=== PATIENT | male | born 1980 | race Caucasian/White ===

== ENCOUNTER 2019-02-18 08:07 | Inpatient (IN) | payer BC ==
[2019-02-18] MEDS ORDERED: NITROGLYCERIN SL TABS 0.4 MG TAB SUBLINGUAL STA (08:23)
[2019-02-18] MEDS ORDERED: ASPIRIN 81 MG PO STA (08:23)
--- NOTE | 2019-02-18 08:27 | ED ---
Chest Pain HPI - General Chief Complaint: Chest Pain Stated Complaint: chest tightness/fever/headache Time Seen by Provider: 02/18/19 08:14 Source: patient, RN notes reviewed Mode of arrival: ambulatory Limitations: no limitations - History of Present Illness Initial Comments: This is a 38-year-old male with a benign past history who states for the past several days she's been having hot flashes chills especially at night having some sweats also started developing chest tightness last evening that increased with very deep breathing he also states it was 7/10 severity currently 3-4/10. It does not radiate. No cough or phlegm production no dysuria hematuria no other symptoms. He is a nonsmoker. No exposure to fumes or dust or dirt inside the ordinary. No heavy lifting or trauma no other modifying factors no family history of any heart disease at early age. MD Complaint: chest pain, other - Related Data Home Medications Medication Instructions Recorded Confirmed No Known Home Medications 02/18/19 02/18/19 Allergies Allergy/AdvReac Type Severity Reaction Status Date / Time No Known Allergies Allergy Verified 02/18/19 08:48 Review of Systems ROS Statement: Those systems with pertinent positive or pertinent negative responses have been documented in the HPI. ROS Other: All systems not noted in ROS Statement are negative. EKG Findings - EKG Results: EKG: interpreted by ANA LUISA (Sinus tachycardia with rate of 111 MO interval 164 QRS 84 QT since QTC 336/[address] configuration) Past Medical History Past Medical History: No Reported History History of Any Multi-Drug Resistant Organisms: None Reported Past Surgical History: Joint Replacement Additional Past Surgical History / Comment(s): nasal surgery Past Psychological History: No Psychological Hx Reported Smoking Status: Never smoker Past Alcohol Use History: Occasional Past Drug Use History: None Reported General Exam - General Exam Comments Initial Comments: This is a well-developed well-nourished awake alert oriented 3 male Limitations: no limitations General appearance: alert, in no apparent distress Head exam: Present: atraumatic, normocephalic, normal inspection Eye exam: Present: normal appearance, PERRL, EOMI. Absent: scleral icterus, conjunctival injection, periorbital swelling ENT exam: Present: normal exam, mucous membranes moist Neck exam: Present: normal inspection. Absent: tenderness, meningismus, lymphadenopathy Respiratory exam: Present: normal lung sounds bilaterally. Absent: respiratory distress, wheezes, rales, rhonchi, stridor Cardiovascular Exam: Present: normal rhythm, tachycardia, normal heart sounds. Absent: systolic murmur, diastolic murmur, rubs, gallop, clicks GI/Abdominal exam: Present: soft, normal bowel sounds. Absent: distended, tenderness, guarding, rebound, rigid Extremities exam: Present: normal inspection, full ROM, normal capillary refill. Absent: tenderness, pedal edema, joint swelling, calf tenderness Back exam: Present: normal inspection Neurological exam: Present: alert, oriented X3, CN II-XII intact Psychiatric exam: Present: normal affect, normal mood Skin exam: Present: warm, dry, intact, normal color. Absent: rash Course Vital Signs 02/18/19 02/18/19 02/18/19 08:11 08:30 08:44 Temperature 98.3 F Pulse Rate 116 H 114 H 114 H Respiratory 18 16 18 Rate Blood Pressure 120/68 125/93 129/99 O2 Sat by Pulse 97 93 L 93 L Oximetry 02/18/19 02/18/19 02/18/19 08:48 09:00 09:30 Temperature 99.2 F Pulse Rate 104 H Respiratory 19 19 Rate Blood Pressure 122/78 114/91 O2 Sat by Pulse 95 94 L Oximetry - Reevaluation(s) Reevaluation #1: 02/18/19 09:50 Patient is stating he has some improvement in his chest tightness. He does have a headache which she's had for several days which is consistent with migraine headaches. Lab has however his called his troponin level is 1.66. Chest Pain MDM - MDM I did review the imaging and report no acute findings. The patient does have evidence of elevated troponin on his lab work. EKG shows sinus tachycardia with nonspecific ST configuration. Case is to be discussed with cardiology, Dr. Herberth oleary and the patient will be admitted to Dr. Vasquez's group, Dr. Leonardo will be the admitting physician. A stat echo has been ordered and is pending. D-dimer is within normal limits. Critical Care Time Critical Care Time: Yes Critical Care Time: 35 minutes of critical care time which includes initial presentation with history physical labs x-rays several reevaluation the patient responsive therapy discuss with cardiology and the admitting physician admission orders documentation the above this also did include conversation the patient again and with his . Disposition Clinical Impression: Non-STEMI (non-ST elevated myocardial infarction), Acute coronary syndrome with high troponin, Chest pain, Sinus tachycardia, Febrile illness, Elevated brain natriuretic peptide (BNP) level Disposition: ADMITTED IP TO THIS HOSP Condition: Serious Referrals: Alvina Dixon III, MD [Primary Care Provider] - 1-2 days
[2019-02-18] MEDS ORDERED: KETOROLAC 30 MG/ML 1 ML VIAL IVP STA (08:52)
[2019-02-18] MEDS ORDERED: SODIUM CHLORIDE 0.9% 500 ML 500 ML IV STA (08:59)
[2019-02-18] MEDS: SODIUM CHLORIDE 0.9% 1,000 ML IV STA ×2 (09:03→15:53)
[2019-02-18 09:06] LABS: Albumin 4.5 g/dL (3.5-5.0); Calcium 9.8 mg/dL (8.4-10.2); Potassium 4.4 mmol/L (3.5-5.1); Total Bilirubin 0.8 mg/dL (0.2-1.3); Total Protein 7.6 g/dL (6.3-8.2)
[2019-02-18 09:13] LABS: Basophils # (A) 0.1 k/uL (0-0.2); Basophils % (A) 1 %; Eosinophils # (A) 0.1 k/uL (0-0.7); Eosinophils % (A) 1 %; HCT 50.5 % (39.0-53.0); HGB 16.9 gm/dL (13.0-17.5); Lymphocytes # (A) 1.5 k/uL (1.0-4.8); Lymphocytes % (A) 15 %; MCH 30.2 pg (25.0-35.0); MCHC 33.5 g/dL (31.0-37.0); Mean Platelet Volume 7.7; Monocytes # (A) 0.9 k/uL (0-1.0); Monocytes % (A) 8 %; Neutrophils # (A) 7.3 k/uL (1.3-7.7); Neutrophils % (A) 72 %; Platelet Count 219 k/uL (150-450); RBC 5.61 m/uL (4.30-5.90); RDW 14.5 % (11.5-15.5); WBC 10.2 k/uL (3.8-10.6)
[2019-02-18 09:23] LABS: D-Dimer 0.4 mg/L FEU (<0.60); Partial Thromboplastin Time 23.6 sec (22.0-30.0); Prothrombin Time 10.4 sec (9.0-12.0)
--- NOTE | 2019-02-18 09:27 | XR ---
EXAMINATION TYPE: XR chest 2V DATE OF EXAM: 02/18/2019 COMPARISON: NONE TECHNIQUE: PA and lateral views submitted. HISTORY: Chest pain FINDINGS: The lungs are clear and there is no pneumothorax, pleural effusion, or focal pneumonia. IMPRESSION: 1. No acute process.
[2019-02-18] MEDS ORDERED: diphenhydrAMINE 50 MG/ML 1 ML VIAL IVP STA (09:40)
[2019-02-18] MEDS ORDERED: METOCLOPRAMIDE 5 MG/ML 2 ML VIAL IVP STA (09:43)
[2019-02-18] MEDS ORDERED: HEPARIN SODIUM,PORCINE 5,000 UNIT/ML 1 ML VIAL IV ONE (09:44)
[2019-02-18] MEDS ORDERED: HEPARIN SODIUM,PORCINE 5,000 UNIT/ML 1 ML VIAL IV PRN (09:44)
[2019-02-18] MEDS ORDERED: HEPARIN SOD,PORK IN 0.45% NACL 25,000 UNIT in 0.45% NACL 1 250ML.BAG IV SCH (09:45)
[2019-02-18] MEDS ORDERED: NITROGLYCERIN OINT 1 INCH/GM PACKET TOPICAL STA (09:45)
[2019-02-18] MEDS ORDERED: FUROSEMIDE 10 MG/ML 4 ML VIAL IV STA (09:57)
[2019-02-18] MEDS ORDERED: NITROGLYCERIN SL TABS 0.4 MG TAB SUBLINGUAL PRN (09:59)
--- NOTE | 2019-02-18 12:09 | ECHOF ---
Referral Reason:Chest pain with elevated troponin MEASUREMENTS -------- HEIGHT: 170.2 cm WEIGHT: 104.3 kg BP: RVIDd: 3.3 cm (< 3.3) IVSd: 1.4 cm (0.6 - 1.1) LVIDd: 4.0 cm (3.9 - 5.3) LVPWd: 1.6 cm (0.6 - 1.1) IVSs: 1.6 cm LVIDs: 3.0 cm LVPWs: 1.5 cm LAESV Index (A-L): 18.24 ml/m Ao Diam: 3.6 cm (2.0 - 3.7) AV Cusp: 2.0 cm (1.5 - 2.6) LA Diam: 3.5 cm (2.7 - 3.8) FINDINGS -------- Resting tachycardia (HR>100bpm). This was a technically difficult study with suboptimal views. The left ventricular size is normal. There is moderate concentric left ventricular hypertrophy. O verall left ventricular systolic function is mild-moderately impaired with, an EF between 40 - 45 %. Basal inferior LV wall motion is hypokinetic. Mid lateral LV wall motion is hypokinetic. Mid inferior LV wall motion is hypokinetic. The right ventricle is mildly enlarged. Normal LA size by volume 22+/-6 ml/m2. The right atrial size is normal. Lumason used Interatrial and interventricular septum intact. There is no evidence of aortic regurgitation. There is no evidence of aortic stenosis. There is trace mitral regurgitation. Trace tricuspid regurgitation present. There is no pulmonic regurgitation present. The aortic root size is normal. IVC Not well visulized. There is no pericardial effusion. CONCLUSIONS -------- 1. Resting tachycardia (HR>100bpm). 2. This was a technically difficult study with suboptimal views. 3. The left ventricular size is normal. 4. There is moderate concentric left ventricular hypertrophy. 5. Mid lateral LV wall motion is hypokinetic. 6. Mid inferior LV wall motion is hypokinetic. 7. The right ventricle is mildly enlarged. 8. Normal LA size by volume 22+/-6 ml/m2. 9. The right atrial size is normal. 10. Lumason used 11. Interatrial and interventricular septum intact. 12. There is no evidence of aortic regurgitation. 13. There is no evidence of aortic stenosis. 14. There is trace mitral regurgitation. 15. Trace tricuspid regurgitation present. 16. There is no pulmonic regurgitation present. 17. The aortic root size is normal. 18. IVC Not well visulized. 19. There is no pericardial effusion. DIRECTOR RADIO NEWS: Ana Lang RDCS
[2019-02-18] MEDS ORDERED: fentaNYL (PF) 50 MCG/ML 2 ML AMP IVP ONE (12:43)
[2019-02-18] MEDS ORDERED: LIDOCAINE 1% INJ 10MG/ML (20 ML MDV) SQ ONE (12:43)
[2019-02-18] MEDS ORDERED: MIDAZOLAM (PF) 2 MG/2 ML VIAL IVP ONE (12:43)
--- NOTE | 2019-02-18 12:52 | CONS ---
CORNELL Moncada is a 38-year-old gentleman with no significant past medical history that came to the [facility] Emergency Room complaining of chest pain. The patient had chest discomfort that started yesterday, mild to moderate intensity, precordial, unrelated to exertion, was associated with some shortness of breath. The patient also has had some headache and has not been feeling well for the last 3 days. His EKG showed sinus tachycardia with nonspecific ST-T wave changes. The first set of troponin came back elevated at 1.6. D-dimer was negative at 0.4. He had an echocardiogram that while I do not have an official report Dr. Caceres who is looking at the echoes called me and said that he has wall motion abnormality involving the inferolateral wall. Given the elevated troponin and the abnormal echo, I am advising the patient to undergo emergent cardiac catheterization. He had been explained of risks, benefits and alternatives. It is possible that the patient has viral myocarditis and the troponin elevation is related to it. PAST MEDICAL HISTORY: Negative for hypertension, diabetes, dyslipidemia. MEDICATIONS: None. ALLERGIES: None. FAMILY HISTORY: Negative for premature coronary artery disease. SOCIAL HISTORY: Negative for current smoking, EtOH abuse, or drug abuse. REVIEW OF SYSTEMS: HEENT is unremarkable. CARDIAC: As described above. RESPIRATORY: Negative. GI: Negative, GENITOURINARY: Negative. ALLERGY/IMMUNOLOGY: Negative. SKIN: Negative. MUSCULOSKELETAL: Significant for arthritis. PSYCHOSOCIAL: Negative. ENDOCRINE: Negative. DERM: Negative. CONSTITUTIONAL: Negative. ONCOLOGICAL: Negative. Rest of the system review is not relevant. PHYSICAL EXAMINATION: On exam, afebrile, heart rate is 110 beats per minute, blood pressure is 112/93, respiratory rate is 18, O2 sat is 95% on 2 L. There is no jugular venous distention. Carotid upstroke is normal. There is no bruit. Chest exam reveals good air entry bilaterally. There is no pleural rub. Cardiac exam reveals first and second heart sounds. No gallop. No murmur. No rub. Abdomen is soft. Exam of extremities did not reveal edema. Peripheral pulses are felt. LABS: Labs show a white cell count of 10.2, platelet count is 219, hemoglobin is 16.9, potassium is 4.4, creatinine 1.2. Troponin is elevated at 1.6. D-dimer is normal. ASSESSMENT: Non ST-segment elevation myocardial infarction. PLAN: Patient will undergo cardiac catheterization this morning and we will decide on further course of action based on the cath findings. MMSANIA / IJN: [id number] /
[2019-02-18] MEDS ORDERED: IOPAMIDOL-370 125ML BTL INJ ONE (12:59)
[2019-02-18] MEDS ORDERED: IV FLUID CONTINUATION 1,000 ML IV ONE (13:00)
[2019-02-18] MEDS ORDERED: RX INFO: IV CONTRAST WAS GIVEN 1 EACH MISC MISCELLANE PRN (13:25)
--- NOTE | 2019-02-18 14:37 | CC ---
CARDIAC CATHETERIZATION REPORT INDICATION: Non ST-segment elevation IA. PROCEDURE NOTE: After obtaining informed consent, left heart catheterization and coronary angiogram were performed via the right femoral artery using standard Kayla catheters. Patient tolerated the procedure well without any obvious immediate complications. A femoral angiogram was performed and Angio-Seal will be deployed for hemostasis. Patient received moderate conscious sedation. Total sedation time was 13 minutes. FINDINGS: 1. HEMODYNAMICS: Left ventricular end-diastolic pressure is 18 mm. There is no significant gradient across the aortic valve. 2. LEFT VENTRICULOGRAM: Left ventriculogram is not performed. 3. ANGIOGRAPHIC DATA. LEFT MAIN CORONARY ARTERY: Left main coronary artery is a normal-sized vessel and is free of stenosis. Divides into left anterior descending coronary artery and circumflex coronary artery. LAD and its branches, circumflex coronary artery and its branches are free of significant stenosis. 1. Right coronary artery is a large dominant vessel and is free of significant disease. CONCLUSION: 1. Normal coronary arteries. 2. The patient's elevated troponin and wall motion abnormalities may be related to myocarditis. PLAN: I will treat the patient with beta blockers, keep him overnight, watch him on telemetry for any cardiac arrhythmias. I will review the echo results once they are available and decide on further course of action based on how his symptoms do. MMODL / IJN: [id number] /
--- NOTE | 2019-02-18 14:40 | P.HPIM ---
History of Present Illness 38-year-old a pleasant gentleman came in with compensative chest tightness the left side of the chest moderate amount of chest pain about 3-5/10 in severity nonradiating started having this chest pain last night continued throughout the night but able to sleep and got up and still had this chest pain denied any shortness of breath diaphoresis associated with that does have some night sweats. Chest pain is not pleuritic patient apparently had flulike symptoms before this event. Patient is found to have elevated troponin first set going up to 1.6 with some wall motion abnormalities on echocardiogram because of which patient will undergo cardiac catheterization patient was started on heparin here. EKG showed sinus tachycardia. Patient doesn't have any risk factors for coronary vascular disease Review of Systems REVIEW OF SYSTEMS: CONSTITUTIONAL: No fever, no malaise, no fatigue. HEENT: No recent visual problems or hearing problems. Denied any sore throat. CARDIOVASCULAR: No orthopnea, PND, no palpitations, no syncope. PULMONARY: No shortness of breath, no cough, no hemoptysis. GASTROINTESTINAL: No diarrhea, no nausea, no vomiting, no abdominal pain. NEUROLOGICAL: No headaches, no weakness, no numbness. HEMATOLOGICAL: Denies any bleeding or petechiae. GENITOURINARY: Denies any burning micturition, frequency, or urgency. MUSCULOSKELETAL/RHEUMATOLOGICAL: Denies any joint pain, swelling, or any muscle pain. ENDOCRINE: Denies any polyuria or polydipsia. The rest of the 14-point review of systems is negative. Past Medical History Past Medical History: Osteoarthritis (OA) Additional Past Medical History / Comment(s): Bronchitis, arthritis multiple joints History of Any Multi-Drug Resistant Organisms: None Reported Past Surgical History: Orthopedic Surgery Additional Past Surgical History / Comment(s): Septoplasty/sinus surgery, L shoulder arthroscopy. Past Anesthesia/Blood Transfusion Reactions: No Reported Reaction Past Psychological History: No Psychological Hx Reported Additional Psychological History / Comment(s): Pt resides with spouse and a 8 yr old child. Pt is independent. Smoking Status: Never smoker Past Alcohol Use History: Occasional Past Drug Use History: None Reported - Past Family History Father Family Medical History: Cancer Additional Family Medical History / Comment(s): Father fro acute leukemia at the age of 50 yrs. Mother Family Medical History: No Reported History Additional Family Medical History / Comment(s): Mother is healthy. Medications and Allergies Home Medications Medication Instructions Recorded Confirmed Type No Known Home Medications 02/18/19 02/18/19 History Allergies Allergy/AdvReac Type Severity Reaction Status Date / Time No Known Allergies Allergy Verified 02/18/19 08:48 Physical Exam Vitals: Vital Signs Temp Pulse Pulse Resp BP BP Pulse Ox 02/18/19 13:40 18 101/69 92 L 02/18/19 13:25 18 112/71 92 L 02/18/19 11:55 98.4 F 104 H 18 121/77 95 02/18/19 10:24 98.6 F 110 H 18 112/93 95 02/18/19 10:00 106 H 15 114/83 02/18/19 09:30 104 H 19 114/91 94 L 02/18/19 09:00 19 122/78 02/18/19 08:48 99.2 F 95 02/18/19 08:44 114 H 18 129/99 93 L 02/18/19 08:30 114 H 16 125/93 93 L 02/18/19 08:11 98.3 F 116 H 18 120/68 97 Intake and Output 02/17/19 02/18/19 02/18/19 22:59 06:59 14:59 Intake Total 150 Balance 150 Intake: IV 150 Other: # Voids 2 Weight 104.326 kg PHYSICAL EXAMINATION: GENERAL: The patient is alert and oriented x3, not in any acute distress. Well developed, well nourished. HEENT: Pupils are round and equally reacting to light. EOMI. No scleral icterus. No conjunctival pallor. Normocephalic, atraumatic. No pharyngeal erythema. No thyromegaly. CARDIOVASCULAR: S1 and S2 present. No murmurs, rubs, or gallops. PULMONARY: Chest is clear to auscultation, no wheezing or crackles. ABDOMEN: Soft, nontender, nondistended, normoactive bowel sounds. No palpable organomegaly. MUSCULOSKELETAL: No joint swelling or deformity. EXTREMITIES: No cyanosis, clubbing, or pedal edema. NEUROLOGICAL: Gross neurological examination did not reveal any focal deficits. SKIN: No rashes. Results CBC & Chem 7: 02/18/19 08:43 02/18/19 08:43 Labs: Abnormal Lab Results - Last 24 Hours (Table) 02/18/19 02/18/19 Range/Units 08:43 08:43 Glucose 133 H (74-99) mg/dL Creatine Kinase 190 H (55-170) U/L Troponin I 1.600 H* (0.000-0.034) ng/mL Thrombosis Risk Factor Assmnt - Choose All That Apply Any of the Below Risk Factors Present?: Yes Each Factor Represents 1 point: Acute [place], Obesity (BMI >25) Other Risk Factors: No Other congenital or acquired thrombophilia - If yes, enter type in comment: No Thrombosis Risk Factor Assessment Total Risk Factor Score: 2 Thrombosis Risk Factor Assessment Level: Low Risk Assessment and Plan Plan: Elevated troponins: Possibly of type I non-ST elevation myocardial infarction continue with heparin patient will undergo cardiac catheterization other differentials considering his age and risk factors include viral cardiomyopathy and low possibility of pulmonary embolism. 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
[2019-02-18] MEDS ORDERED: BUTALB/APAP/CAFF 50-325-40MG TAB PO PRN (15:08)
[2019-02-18] MEDS ORDERED: ACETAMINOPHEN TAB 325 MG TAB PO PRN (15:09)
[2019-02-18] MEDS: SODIUM CHLORIDE 0.9% 1,000 ML IV SCH (15:54)
[2019-02-18] MEDS: METOPROLOL SUCCINATE (ER) 25 MG TAB.ER.24H PO SCH (15:57)
[2019-02-18] MEDS ORDERED: NITROGLYCERIN OINT 1 INCH/GM PACKET TOPICAL SCH (18:00)
[2019-02-18 21:04] VITALS: RESP 16
[2019-02-19] MEDS: SODIUM CHLORIDE 0.9% 1,000 ML IV SCH (05:09)
[2019-02-19 06:31] LABS: Basophils # (A) 0.1 k/uL (0-0.2); Basophils % (A) 1 %; Eosinophils # (A) 0.2 k/uL (0-0.7); Eosinophils % (A) 3 %; HCT 47.7 % (39.0-53.0); HGB 15.5 gm/dL (13.0-17.5); Lymphocytes # (A) 2.1 k/uL (1.0-4.8); Lymphocytes % (A) 33 %; MCH 29.4 pg (25.0-35.0); MCHC 32.6 g/dL (31.0-37.0); MCV 90.2 fL (80.0-100.0); Mean Platelet Volume 7.2; Monocytes # (A) 0.4 k/uL (0-1.0); Monocytes % (A) 7 %; Neutrophils # (A) 3.3 k/uL (1.3-7.7); Neutrophils % (A) 53 %; Platelet Count 221 k/uL (150-450); RBC 5.28 m/uL (4.30-5.90); RDW 13.1 % (11.5-15.5); WBC 6.3 k/uL (3.8-10.6)
[2019-02-19 06:55] LABS: Cholesterol 148 mg/dL (<200); HDL Cholesterol 42 mg/dL (40-60); LDL Cholesterol,Calculated 82 mg/dL (0-99); Triglycerides 119 mg/dL (<150)
[2019-02-19] MEDS: METOPROLOL SUCCINATE (ER) 25 MG TAB.ER.24H PO SCH (07:53)
[2019-02-19] MEDS ORDERED: ASPIRIN 325 MG TAB PO SCH ×2 (09:00)
--- NOTE | 2019-02-19 11:51 | P.PN ---
<Idania Bueno - Last Filed: 02/19/19 12:43> Subjective Progress Note Date: 02/19/19 Principal diagnosis: Myocarditis The patient is a 38-year-old male with no significant medical history, presented to the hospital with new onset of chest discomfort and shortness of breath. Initial EKG showed sinus tachycardia with nonspecific ST T wave changes and troponins were elevated. He was taken to the director of cath lab to assess for CAD, which subsequently showed normal coronary arteries. His echocardiogram showed reduced ejection fraction of 40-45% with LV hypokinesis. Prior to his admission to the hospital, he does state that he had been suffering from fever and chills for several days. Today he states he is doing well. He denies any chest discomfort, dyspnea, palpitations, dizziness, or vertigo. He states he has been resting comfortably in bed and has only taken very brief walks around the room. GENERAL: Well-appearing, well-nourished and in no acute distress. NECK: Supple without JVD or thyromegaly. LUNGS: Breath sounds clear to auscultation bilaterally. Respiration equal and unlabored. No wheezes, rales or rhonchi. HEART: Regular rate and rhythm without murmurs, rubs or gallops. S1 and S2 heard. Tachycardic EXTREMITIES: Normal range of motion, no edema. No clubbing or cyanosis. Peripheral pulses intact and strong. EKG shows sinus tachycardia. Telemetry strips reviewed, no supraventricular or ventricular ectopy Labs: WBC 6.3, hemoglobin 15.5, platelet 221, sodium 141, potassium 4.4, BUN 15, creatinine 1.20, magnesium 2.0, CK 190, TSH 2.960 Troponin peaked at 2.8. LDL 82, HDL 42 and triglycerides 119 Assessment #1 myocarditis, likely viral in origin #2 nonischemic cardiomyopathy #3 elevated troponin, related to myocarditis #4 sinus tachycardia Plan: Increase metoprolol succinate to 50 mg once daily, spironolactone 12.5mg daily, and lisinopril 5mg at night. Viral titers to be done. Patient should ambulate halls, however he was instructed not to do strenuous exercise. We will continue to monitor him on telemetry for the next several days due to risk of tachyarrhythmias. Objective - Vital Signs Vital signs: Vital Signs Temp 98.3 F 02/19/19 07:54 Pulse 80 02/19/19 07:54 Resp 16 02/19/19 07:54 BP 109/80 02/19/19 07:54 Pulse Ox 97 02/19/19 07:54 Intake & Output 02/18/19 02/19/19 02/19/19 18:59 06:59 18:59 Intake Total 390 375 360 Balance 390 375 360 Weight 104.326 kg 101.7 kg Intake: IV 150 Intake, IV Titration 375 Amount Sodium Chloride 0.9% 1, 375 000 ml @ 75 mls/hr IV . [id number] ALYSSA Rx#:[id number] Oral 240 360 Other: # Voids 2 1 - Labs CBC & Chem 7: 02/19/19 05:56 02/18/19 08:43 Labs: Abnormal Lab Results - Last 24 Hours (Table) 02/18/19 02/18/19 Range/Units 15:50 21:25 Troponin I 2.800 H* 1.730 H* (0.000-0.034) ng/mL Microbiology - Last 24 Hours (Table) 02/18/19 08:43 Blood Culture - Preliminary Blood No Growth after 24 hours <Neftali Layne - Last Filed: 02/19/19 12:48> Subjective Likely myocarditis. He was feeling feverish for a few days prior to admission and then had severe chest discomfort with abnormal cardiac enzymes T-wave inversions in the lateral precordial leads but normal coronary arteries. Clinical scenario consistent with myocarditis. Viral titers have been sent. Beta blockers maximized, spinal lactone and NATALIE inhibitor as initiated Watch for any ventricular arrhythmias on telemetry as well as worsening heart failure function clinically did patient ambulate in the hallways for the next 24-48 hours on telemetry No strenuous exertion during the acute phase of myocarditis Objective - Vital Signs Vital signs: Vital Signs Temp 98.4 F 02/19/19 12:00 Pulse 93 02/19/19 12:00 Resp 02/19/19 12:00 BP 134/98 02/19/19 12:00 Pulse Ox 95 02/19/19 12:00 Intake & Output 02/18/19 02/19/19 02/19/19 18:59 06:59 18:59 Intake Total 390 375 360 Balance 390 375 360 Weight 104.326 kg 101.7 kg Intake: IV 150 Intake, IV Titration 375 Amount Sodium Chloride 0.9% 1, 375 000 ml @ 75 mls/hr IV . [id number] ALYSSA Rx#:[id number] Oral 240 360 Other: # Voids 2 1 - Labs CBC & Chem 7: 02/19/19 05:56 02/18/19 08:43 Labs: Abnormal Lab Results - Last 24 Hours (Table) 02/18/19 02/18/19 Range/Units 15:50 21:25 Troponin I 2.800 H* 1.730 H* (0.000-0.034) ng/mL Microbiology - Last 24 Hours (Table) 02/18/19 08:43 Blood Culture - Preliminary Blood No Growth after 24 hours
[2019-02-19] MEDS ORDERED: METOPROLOL SUCCINATE (ER) 25 MG TAB.ER.24H PO STA (12:33)
--- NOTE | 2019-02-19 12:58 | P.PN ---
Subjective 38-year-old a pleasant gentleman came in with compensative chest tightness the left side of the chest moderate amount of chest pain about 3-5/10 in severity nonradiating started having this chest pain last night continued throughout the night but able to sleep and got up and still had this chest pain denied any shortness of breath diaphoresis associated with that does have some night sweats. Chest pain is not pleuritic patient apparently had flulike symptoms before this event. Patient is found to have elevated troponin first set going up to 1.6 with some wall motion abnormalities on echocardiogram because of which patient will undergo cardiac catheterization patient was started on heparin here. EKG showed sinus tachycardia. Patient doesn't have any risk factors for coronary vascular disease 02/19/2019 Time patient underwent cardiac catheterization which did not show any significant atherosclerotic coronary vascular disease. Patient appears to have viral myocarditis and patient ejection fraction is 40-45%, cardiology is requiri ng monitoring because of the concerns of cardiac rhythm abnormalities. Patient was started on small dose of Aldactone, lisinopril and beta amaya Constitutional: Denied any fatigue denied any fever. Cardio vascular: denied any chest pain, palpitations Gastrointestinal denied any nausea vomiting Pulmonary: Denied any shortness of breath cough Neurologic denied any new focal deficits All inpatient medications were reviewed and appropriate changes in these medications as dictated in the interval history and assessment and plan. Objective - Vital Signs Vital signs: Vital Signs Temp 98.4 F 02/19/19 12:00 Pulse 93 02/19/19 12:00 Resp 16 02/19/19 12:00 BP 134/98 02/19/19 12:00 Pulse Ox 95 02/19/19 12:00 Intake & Output 02/18/19 02/19/19 02/19/19 18:59 06:59 18:59 Intake Total 390 375 360 Balance 390 375 360 Weight 104.326 kg 101.7 kg Intake: IV 150 Intake, IV Titration 375 Amount Sodium Chloride 0.9% 1, 375 000 ml @ 75 mls/hr IV . [id number] ALYSSA Rx#:[id number] Oral 240 360 Other: # Voids 2 1 - Exam PHYSICAL EXAMINATION: GENERAL: The patient is alert and oriented x3, not in any acute distress. Well developed, well nourished. HEENT: Pupils are round and equally reacting to light. EOMI. No scleral icterus. No conjunctival pallor. Normocephalic, atraumatic. No pharyngeal erythema. No thyromegaly. CARDIOVASCULAR: S1 and S2 present. No murmurs, rubs, or gallops. PULMONARY: Chest is clear to auscultation, no wheezing or crackles. ABDOMEN: Soft, nontender, nondistended, normoactive bowel sounds. No palpable organomegaly. MUSCULOSKELETAL: No joint swelling or deformity. EXTREMITIES: No cyanosis, clubbing, or pedal edema. NEUROLOGICAL: Gross neurological examination did not reveal any focal deficits. SKIN: No rashes. - Labs CBC & Chem 7: 02/19/19 05:56 02/18/19 08:43 Labs: Abnormal Lab Results - Last 24 Hours (Table) 02/18/19 02/18/19 Range/Units 15:50 21:25 Troponin I 2.800 H* 1.730 H* (0.000-0.034) ng/mL Microbiology - Last 24 Hours (Table) 02/18/19 08:43 Blood Culture - Preliminary Blood No Growth after 24 hours Assessment and Plan Plan: Elevated troponins: Secondary to viral myocarditis and cardiac catheterization results as mentioned above -Congestive heart failure acute systolic dysfunction without any pulmonary edema or acute exacerbation: Secondary to viral myocarditis and the patient was started on NATALIE inhibitor, beta amaya and Aldactone -Sinus tachycardia secondary to viral myocarditis and patient was started on beta amaya
[2019-02-19] MEDS: SPIRONOLACTONE 25 MG TAB PO SCH (14:12)
[2019-02-19] MEDS: LISINOPRIL 5 MG TAB PO SCH (19:04)
[2019-02-20 06:34] LABS: Basophils # (A) 0.1 k/uL (0-0.2); Basophils % (A) 1 %; Eosinophils # (A) 0.2 k/uL (0-0.7); Eosinophils % (A) 3 %; HCT 42.9 % (39.0-53.0); HGB 14.5 gm/dL (13.0-17.5); Lymphocytes # (A) 2.3 k/uL (1.0-4.8); Lymphocytes % (A) 30 %; MCH 29.5 pg (25.0-35.0); MCHC 33.8 g/dL (31.0-37.0); MCV 87.2 fL (80.0-100.0); Monocytes # (A) 0.6 k/uL (0-1.0); Monocytes % (A) 7 %; Neutrophils # (A) 4.2 k/uL (1.3-7.7); Neutrophils % (A) 55 %; Platelet Count 238 k/uL (150-450); RBC 4.92 m/uL (4.30-5.90); RDW 12.8 % (11.5-15.5); WBC 7.7 k/uL (3.8-10.6)
[2019-02-20] MEDS: SPIRONOLACTONE 25 MG TAB PO SCH (08:43)
[2019-02-20] MEDS: LISINOPRIL 5 MG TAB PO SCH (08:43)
[2019-02-20 08:48] VITALS: BP 116/70; PULSE 79; TEMP 98.3
[2019-02-20] MEDS ORDERED: METOPROLOL SUCCINATE (ER) 50 MG TAB.ER.24H PO SCH (09:00)
--- NOTE | 2019-02-20 12:07 | P.DS ---
Providers Date of admission: 02/18/19 09:59 Attending physician: Linden Leonardo Consults: 02/18/19 09:59 Consult Physician Urgent Consulting Provider: Ronnie Gomes Consult Reason/Comments: Chest pain, elevated troponin Do you want consulting provider notified?: Already Contacted Primary care physician: Alvina [facility] Course: 38-year-old a pleasant gentleman came in with compensative chest tightness the left side of the chest moderate amount of chest pain about 3-5/10 in severity nonradiating started having this chest pain last night continued throughout the night but able to sleep and got up and still had this chest pain denied any shortness of breath diaphoresis associated with that does have some night sweats. Chest pain is not pleuritic patient apparently had flulike symptoms before this event. Patient is found to have elevated troponin first set going up to 1.6 with some wall motion abnormalities on echocardiogram because of which patient will undergo cardiac catheterization patient was started on heparin here. EKG showed sinus tachycardia. Patient doesn't have any risk factors for coronary vascular disease 02/19/2019 Time patient underwent cardiac catheterization which did not show any significant atherosclerotic coronary vascular disease. Patient appears to have viral myocarditis and patient ejection fraction is 40-45%, cardiology is requiring monitoring because of the concerns of cardiac rhythm abnormalities. Patient was started on small dose of Aldactone, lisinopril and beta amaya 02/20/2019 Patient is clinically doing well is being discharged today. PHYSICAL EXAMINATION: GENERAL: The patient is alert and oriented x3, not in any acute distress. Well developed, well nourished. HEENT: Pupils are round and equally reacting to light. EOMI. No scleral icterus. No conjunctival pallor. Normocephalic, atraumatic. No pharyngeal erythema. No thyromegaly. CARDIOVASCULAR: S1 and S2 present. No murmurs, rubs, or gallops. PULMONARY: Chest is clear to auscultation, no wheezing or crackles. ABDOMEN: Soft, nontender, nondistended, normoactive bowel sounds. No palpable organomegaly. MUSCULOSKELETAL: No joint swelling or deformity. EXTREMITIES: No cyanosis, clubbing, or pedal edema. NEUROLOGICAL: Gross neurological examination did not reveal any focal deficits. SKIN: No rashes. -Diagnosis viral cardiomyopathy with a decreased ejection fraction of 40-45% patient discharge and NATALIE inhibitor beta amaya and Aldactone. Patient Condition at Discharge: Serious Plan - Discharge Summary Discharge Rx Participant: No New Discharge Prescriptions: New Spironolactone [Aldactone] 25 mg PO DAILY #30 tab Metoprolol Succinate (ER) [Toprol XL] 50 mg PO DAILY #30 tab.er.24h Lisinopril [Zestril] 5 mg PO DAILY #30 tab Discharge Medication List Lisinopril [Zestril] 5 mg PO DAILY #30 tab 02/20/19 [Rx] Metoprolol Succinate (ER) [Toprol XL] 50 mg PO DAILY #30 tab.er.24h 02/20/19 [Rx] Spironolactone [Aldactone] 25 mg PO DAILY #30 tab 02/20/19 [Rx] Follow up Appointment(s)/Referral(s): Alvina Dixon III, MD [Primary Care Provider] - 3 Days (CALL THURSDAY FOR APPT) Ronnie Gomes MD [STAFF PHYSICIAN] - 1 Week (CALL THURSDAY FOR APPT) Patient Instructions/Handouts: Heart Attack (DC), Myocarditis (DC) Discharge Disposition: HOME SELF-CARE
--- NOTE | 2019-02-20 12:38 | P.PN ---
Subjective Progress Note Date: 02/20/19 Principal diagnosis: Myocarditis The patient is a 38-year-old male who is currently admitted for myocarditis. He is currently doing well resting comfortably in bed. He denies any chest discomfort, dyspnea, palpitations, dizziness, or vertigo. According to hospital staff he has had no tachyarrhythmias overnight. He was able to walk the halls with Dr. Layne without any symptoms. GENERAL: Well-appearing, well-nourished and in no acute distress. NECK: Supple without JVD or thyromegaly. LUNGS: Breath sounds clear to auscultation bilaterally. Respiration equal and unlabored. No wheezes, rales or rhonchi. HEART: Regular rate and rhythm without murmurs, rubs or gallops. S1 and S2 heard. EXTREMITIES: Normal range of motion, no edema. No clubbing or cyanosis. Peripheral pulses intact and strong. Labs: WBC 7.7, hemoglobin 14.5, hematocrit 42.9, platelet 238, viral titers pending Assessment: #1 myocarditis, likely viral in origin #2 nonischemic cardiomyopathy #3 elevated troponin #4 sinus tachycardia Plan Continue current medication regimen. Patient educated that he should not perform strenuous activity for the next 6 weeks. He will be discharged home today to follow up with Dr. Gomes in the office. Objective - Vital Signs Vital signs: Vital Signs Temp 98.3 F 02/20/19 08:45 Pulse 79 02/20/19 08:45 Resp 16 02/20/19 08:45 BP 116/70 02/20/19 08:45 Pulse Ox 96 02/20/19 08:45 Intake & Output 02/19/19 02/20/19 02/20/19 18:59 06:59 18:59 Intake Total 960 360 Balance 960 360 Weight 101.3 kg Intake: Oral 960 360 Other: # Voids 1 1 - Labs CBC & Chem 7: 02/20/19 05:58 02/18/19 08:43 Labs: Microbiology - Last 24 Hours (Table) 02/18/19 08:43 Blood Culture - Preliminary Blood No Growth after 48 hours
[2019-02-24 10:07] LABS: Parvovirus B-19 IgM Antibodies 0.78 INDEX (<=0.90)
== END 2019-02-20 13:03 | disposition home or self-care (01) | DRG 286 ==
LOC: EC 08:07 → 3SCARD 09:59
PROVIDERS: ADMIT Internal Medicine; ATTEND Internal Medicine
PROC: B2111ZZ Fluoroscopy of Multiple Coronary Arteries using Low Osmolar Contrast (ICD-10-PCS; 2019-02-18)
PROC: 4A023N7 Measurement of Cardiac Sampling and Pressure, Left Heart, Percutaneous Approach (ICD-10-PCS; principal; 2019-02-18 12:20)
DX: I40.0 Infective myocarditis (principal); I50.21 Acute systolic (congestive) heart failure; I42.9 Cardiomyopathy, unspecified; N17.9 Acute kidney failure, unspecified; M15.9 Polyosteoarthritis, unspecified; G43.909 Migraine, unspecified, not intractable, without status migrainosus; Z80.6 Family history of leukemia
CPT/HCPCS: 36415; 71046; 80053; 80061; 82550; 83690; 83735; 83880; 84443; 84484; 85025; 85379; 85610; 85730; 86658; 86747; 87040; 93005; 93306; 93458; 96361; 96365; 96375; 96376; 99291

== ENCOUNTER 2021-07-18 07:55 | Emergency (ER) | payer BC ==
[2021-07-18] MEDS ORDERED: ACETAMINOPHEN TAB 500 MG TAB PO STA (08:23)
[2021-07-18] MEDS ORDERED: IBUPROFEN 600 MG TAB PO STA (08:23)
[2021-07-18] MEDS ORDERED: SODIUM CHLORIDE 0.9% 1,000 ML IV STA (08:24)
--- NOTE | 2021-07-18 08:40 | XR ---
EXAMINATION TYPE: XR chest 1V portable DATE OF EXAM: 07/18/2021 COMPARISON: 02/18/2019 HISTORY: Chest pain TECHNIQUE: Single frontal view of the chest is obtained. FINDINGS: There is no focal air space opacity, pleural effusion, or pneumothorax seen. The cardiac silhouette size is within normal limits. The osseous structures are intact. IMPRESSION: 1. No acute process.
[2021-07-18] MEDS ORDERED: SODIUM CHLORIDE 0.9% 50 ML IVPB ONE (08:45)
[2021-07-18] MEDS ORDERED: BAMLANIVIMAB (EUA) 700 MG, ETESEVIMAB (EUA) 1,400 MG in SODIUM CHLORIDE 0.9% 100 ML IVPB ONE (08:45)
--- NOTE | 2021-07-18 08:51 | ED ---
General Adult HPI - General Source: patient Mode of arrival: ambulatory Limitations: no limitations <Brody Bear - Last Filed: 07/18/21 09:09> <Radha Landaverde - Last Filed: 07/19/21 21:54> - General Chief complaint: Upper Respiratory Infection Stated complaint: Covid + Time Seen by Provider: 07/18/21 08:02 - History of Present Illness Initial comments: 40-year-old male presents to the emergency room for a chief complaint of cough. Patient states that he is COVID-19 positive for about a week now. States that he is having mucus production with his cough and is not feeling well. He has not taken Motrin or Tylenol in the past 6 hours. He has been taking [id number] medications at home. He tested positive at his doctor's office and he was supposed to get antibodies but was told he doesn't qualify (Brody Bear) - Related Data Previous Rx's Medication Instructions Recorded Metoprolol Succinate (ER) [Toprol 50 mg PO DAILY #30 tab.er.24h 02/20/19 XL] Spironolactone [Aldactone] 25 mg PO DAILY #30 tab 02/20/19 lisinopriL [Zestril] 5 mg PO DAILY #30 tab 02/20/19 Allergies Allergy/AdvReac Type Severity Reaction Status Date / Time No Known Allergies Allergy Verified 07/18/21 07:56 Review of Systems ROS Other: All systems not noted in ROS Statement are negative. <Brody Bear - Last Filed: 07/18/21 09:09> ROS Other: All systems not noted in ROS Statement are negative. <Radha Landaverde - Last Filed: 07/19/21 21:54> ROS Statement: Those systems with pertinent positive or pertinent negative responses have been documented in the HPI. Past Medical History Past Medical History: Osteoarthritis (OA) Additional Past Medical History / Comment(s): Bronchitis, arthritis multiple joints, myocarditis History of Any Multi-Drug Resistant Organisms: None Reported Past Surgical History: Orthopedic Surgery Additional Past Surgical History / Comment(s): Septoplasty/sinus surgery, L shoulder arthroscopy. Past Anesthesia/Blood Transfusion Reactions: No Reported Reaction Past Psychological History: No Psychological Hx Reported Smoking Status: Never smoker Past Alcohol Use History: Occasional, Rare Past Drug Use History: None Reported - Past Family History Father Family Medical History: Cancer Additional Family Medical History / Comment(s): Father fro acute leukemia at the age of 50 yrs. Mother Family Medical History: No Reported History Additional Family Medical History / Comment(s): Mother is healthy. <Brody Bear - Last Filed: 07/18/21 09:09> General Exam Limitations: no limitations General appearance: alert, in no apparent distress Head exam: Present: atraumatic Eye exam: Present: normal appearance, PERRL, EOMI. Absent: scleral icterus, conjunctival injection ENT exam: Present: normal exam, mucous membranes moist Neck exam: Present: normal inspection, full ROM. Absent: tenderness Respiratory exam: Present: normal lung sounds bilaterally. Absent: respiratory distress, wheezes Cardiovascular Exam: Present: regular rate, normal rhythm, normal heart sounds GI/Abdominal exam: Present: soft, normal bowel sounds. Absent: distended, tenderness <Brody Bear - Last Filed: 07/18/21 09:09> Course Vital Signs 07/18/21 07/18/21 07/18/21 07:56 09:00 10:10 Temperature 101.1 F H 99.6 F Pulse Rate 118 H 92 Respiratory 18 16 16 Rate Blood Pressure 113/82 129/86 O2 Sat by Pulse 98 94 L Oximetry Medical Decision Making <Brody Bear - Last Filed: 07/18/21 09:09> <Radha Landaverde - Last Filed: 07/19/21 21:54> - Medical Decision Making Vitals are stable. Patient does have a fever and reflexive tachycardia. He was given Motrin and Tylenol. Patient did test positive for COVID-19 outpatient. Patient had chest x-ray here which was unremarkable. Patient does qualify for antibody infusion. He was started on this and monitored for an hour. Patient will be discharge from the follow-up with primary care. Will return here for any worsening symptoms. (Brody Bear) I was available for consultation in the emergency department. The history and physical exam were done by the midlevel provider. I was consulted for this patients care. I reviewed the case with the midlevel provider and based on their presentation of the patient, I agree with the assessment, medical decision making and plan of care as documented. Chart was dictated using [employer] dictation software. Attempts were made to correct any dictation errors however some typographical errors may persist. Patient was seen during a national state of emergency due to the Covid-19 pandemic. (Radha Landaevrde) Disposition Is patient prescribed a controlled substance at d/c from ED?: No Time of Disposition: 09:12 <Brody Bear - Last Filed: 07/18/21 09:09> <Radha Landaverde - Last Filed: 07/19/21 21:54> Clinical Impression: COVID-19 Disposition: HOME SELF-CARE Condition: Good Instructions (If sedation given, give patient instructions): Coronavirus Disease 2019 (COVID-19) Additional Instructions: Please follow up with your doctor in 1-2 days. Return to the ER for any worsening symptoms. Referrals: Alvina Dixon III, MD [Primary Care Provider] - 1-2 days
[2021-07-18 09:22] VITALS: RESP 16
[2021-07-18 10:12] VITALS: BP 129/86; PULSE 92; TEMP 99.6
== END 2021-07-18 10:45 | disposition home or self-care (01) ==
LOC: EC 07:55
DX: U07.1 COVID-19 (principal); M19.90 Unspecified osteoarthritis, unspecified site; Z72.89 Other problems related to lifestyle
CPT/HCPCS: 71045; 96360; 99283